=== PATIENT | female | born 1965 | race Caucasian/White ===

== ENCOUNTER 2017-04-17 07:14 | Emergency (ER) | payer OTHER ==
[~2017-04-17] VITALS: Ht 165.1 cm; Wt 113.6 kg
[2017-04-17 07:16] VITALS: BP 180/112; PULSE 87; RESP 18; O2SAT 98
--- NOTE | 2017-04-17 07:42 | ED.REPORT ---
HPI-Extremity Problem Lower Date of Service April 17, 2017 ED Provider: Maria Luisa Urbano MD Patient is a 52 year old female who presents to the ED complaining of right leg swelling onset 8 days ago. She denies fever, chills, shortness of breath, palpitations, knee or ankle pain. The patient reports that she went on a hike and that the swelling has gotten progressively worse since then. Prior to arrival to the ED, the patient took Tylenol and has been icing her foot. Nursing Notes Stated Complaint: RT LEG PAIN Chief Complaint: Extremity Trauma Nursing Notes Reviewed: Yes Allergies: Coded Allergies: No Known Allergies (Unverified , 04/17/17) General Time Seen by MD: 07:41 Chief Complaint Foot injury right Hx Obtained From: Patient Arrived By: Walk-in Onset Occurred: 1 week ago Symptom Duration: Since onset Associated with: Reports: Swelling, Denies: Difficulty breathing, Fever Similar Sx Previous: No Past Medical History Past Medical History none reported Past Surgical History bilateral knee replacement Smoking History Unknown if Ever Smoker Social History Other Social History: Local resident Ambulatory Status Independent Review of Systems Constitutional: Denies: Chills, Fever Musculoskeletal: Reports: Extremity swelling (right foot), Denies: Extremity pain Complete sys rev & neg: except as marked. Respiratory: Denies: Non-productive cough, Shortness of breath Cardiovascular: Denies: Chest pain, Palpitations Hematologic: Denies Bruising Physical Exam Initial Vital Signs Vital Signs (First) Date Time Temp Pulse Resp B/P Pulse Ox O2 Delivery O2 Flow Rate FiO2 04/17/17 07:16 36.2 87 18 180/112 98 Initial VS: Reviewed Lower Extremity / Pelvis / MS: Atraumatic, Full range of motion no groin lymphadenopathy Ankle / Foot: Atraumatic, Full range of motion General/Constitutional: Awake, Alert, No acute distress Respiratory / Chest: Atraumatic, Breath sounds NL, Breath sounds = bilat, No respiratory distress Cardiovascular: Heart rate NL, Regular rhythm, Heart sounds NL Skin: Warm, Dry erythema on the right leg over the lower anterior emanuel not clearly demarcated more swelling on the right leg than left, minimal swelling non pitting edema Neurologic: Oriented X3, Speech NL, No motor deficits, No sensory deficits Head / Eyes: Atraumatic, Normocephalic, PERRL, EOMI Abdomen: Atraumatic, Soft, Non-tender Psychiatric: Affect NL, Mood NL Interpretation & Diagnostics Interpretation & Diagnostics: VENOUS DUPLEX US: IMPRESSION: Limited examination but no definitive DVT in the right lower extremity. Dictated by: Sheree Negro M.D. on 04/17/2017 at 9:58 Approved by: Sheree Negro M.D. on 04/17/2017 at 9:59 Lab Results Interpretation Result Diagram: 04/17/17 0803 04/17/17 0803 Test 04/17/17 08:03 White Blood Count 7.3th/mm3 (3.8-10.1) Red Blood Count 4.14mil/mm3 (3.90-5.20) Hemoglobin 11.8g/dL (12.0-15.6) Hematocrit 36.0% (35.0-46.0) Mean Corpuscular Volume 87.0fL (81-100) Mean Corpuscular Hemoglobin 28.5pg (27.0-35.0) Mean Corpuscular Hemoglobin Concent 32.8% (32.0-37.0) Red Cell Distribution Width 12.7% (12.3-15.4) Platelet Count 264bil/L (150-400) Neutrophils (%) (Auto) 55.9% (40-74) Lymphocytes (%) (Auto) 27.7% (14-46) Monocytes (%) (Auto) 8.0% (4-12) Eosinophils (%) (Auto) 8.0% (0-5) Basophils (%) (Auto) 0.3% (0-3) Sodium Level 140mEq/L (134-144) Potassium Level 4.1mEq/L (3.5-5.2) Chloride Level 102mEq/L (97-108) Carbon Dioxide Level 26mmol/L (18-29) Blood Urea Nitrogen 13mg/dL (6-24) Creatinine 0.51mg/dL (0.57-1.00) Estimat Glomerular Filtration Rate 180mL/min (>59) Glucose Level 161mg/dL (60-99) Calcium Level 9.2mg/dL (8.5-10.1) Total Bilirubin 0.4mg/dL (0.0-1.2) Aspartate Amino Transf (AST/SGOT) 26U/L (0-50) Alanine Aminotransferase (ALT/SGPT) 37U/L (0-32) Alkaline Phosphatase 87U/L (25-150) Total Protein 6.9g/dL (6.4-8.4) Albumin 4.2g/dL (3.4-5.0) Hold Vilchis Top Tube Received (Received) Re-Eval/Medical Decision Re-Evaluation/Progress : Time of Eval: 10:08 Re-Evaluation/Progress Note: Discussed plan for discharge. The patient understands and agrees to the plan for discharge. All questions were addressed. Counseled Regarding: Diagnosis, Lab results, Need for follow-up, When/why to return to ED Discharge & Departure Impression: Primary Impression: Lower extremity pain Laterality: right Qualified Code: M79.604 - Pain in right leg Disposition: Home Discharge Condition All VS Reviewed: Yes Condition: Stable Patient Instructions: Leg Pain (ED) Additional Instructions: The ultrasound showed no evidence of blood clots. It does not look like you have an infection so you don't need to be on any antibiotics at this time. Most likely your pain is musculoskeletal. Continue to give it time to heal. Get plenty of rest. You can use ice and Tylenol as needed for pain. Follow up with your primary care physician next week if the pain persists. You should call them today to schedule an appointment, if the pain resolves, you can cancel the appointment. Return to the emergency department if you develop any new or worsening symptoms. Referrals: Leon Gerardo MD (PCP) Fany Attestation Portions of this note were transcribed by Brittney Shirley. I, Dr. Urbano personally performed the history, physical exam and medical decision-making; I reviewed and confirmed the accuracy of the information in the transcribed note. Signed by: Fany Stanley, 04/17/17 and 0940 copies to: Leon Gerardo MD, Shawna L MD April 17, 2017 07:42 Kacey Shirley April 17, 2017 07:51
[2017-04-17 08:32] LABS: Mean Corpuscular Hemoglobin 28.5 pg (27.0-35.0); NEUTROPHILS % (AUTO) 55.9 % (40-74); Platelet Count 264 bil/L (150-400)
[2017-04-17 08:33] LABS: BASOPHILS % (AUTO) 0.3 % (0-3)
--- NOTE | 2017-04-17 10:01 | DRSVH ---
PROCEDURE: US VEINOUS LEG DUPLEX UNILATERAL, RIGHT INDICATIONS: unilateral pain, swelling TECHNIQUE: Real-time imaging, as well as color and pulse Doppler interrogation, were performed of the lower extr emity deep veins from the inguinal ligament to the popliteal fossa. COMPARISON: None. FINDINGS: The deep veins are normally compressible, and free of intraluminal thrombus. Color and pu lse Doppler demonstrate normal phasic intraluminal flow. There is normal augmentation response to di stal compression maneuver. Limited examination du to the patient's body habitus. IMPRESSION: Limited examination but no definitive DVT in the right lower extremity. Dictated by: Sheree Negro M.D. on 04/17/2017 at 9:58 Approved by: Sheree Negro M.D. on 04/17/2017 at 9:59
== END 2017-04-17 10:45 | disposition home or self-care (01) ==
LOC: SED 07:14
DX: M79.604 Pain in right leg (principal); X50.1XXA Overexertion from prolonged static or awkward postures, initial encounter; Y92.838 Other recreation area as the place of occurrence of the external cause; Y93.89 Activity, other specified; Y99.8 Other external cause status; Z96.651 Presence of right artificial knee joint; Z96.652 Presence of left artificial knee joint